=== PATIENT | female | born 1995 ===

== ENCOUNTER 2017-09-03 17:53 | Emergency (ER) | payer MEDICAID, OTHER ==
[2017-09-03 18:06] VITALS: BP 123/74; RESP 16; TEMP 97.9; O2SAT 100
--- NOTE | 2017-09-03 19:20 | ED PDOC ---
HPI: Headache Time Seen by Provider: 09/03/17 19:01 Chief Complaint (Nursing): Headache Chief Complaint (Provider): Headache History Per: Patient History/Exam Limitations: no limitations Onset/Duration Of Symptoms: Hrs (today) Current Symptoms Are (Timing): Better Quality: Other (throbbing) Preceeding Symptoms: Visual Disturbances Associated Symptoms: Extremity Weakness (left arm asleep with pinching sensation.) Additional Complaint(s): Todd Hwang is a 22 year old female, with no significant past medical history, who presents to the emergency department complaining of headache and dizziness onset today. Patient states symptoms started while at work, she noticed her "vision was moving" and felt desequilibrium while walking. Patient describes the headache as throbbing, non maximal at onset and non thunderclap. Patient also reports her left arm was asleep with a pinching sensation. She states symptoms have improved. Patient is currently taking doxycycline for acne. She denies any other medical complaints. PMD: None provided. Past Medical History Reviewed: Historical Data, Nursing Documentation, Vital Signs Vital Signs: Last Vital Signs Temp 97.9 F 09/03/17 18:02 Pulse 108 H 09/03/17 18:02 Resp 16 09/03/17 18:02 BP 123/74 09/03/17 18:02 Pulse Ox 100 09/03/17 18:02 - Medical History PMH: No Chronic Diseases - Surgical History Surgical History: No Surg Hx - Family History Family History: States: Unknown Family Hx - Allergies Allergies/Adverse Reactions: Allergies Allergy/AdvReac Type Severity Reaction Status Date / Time No Known Allergies Allergy Verified 09/03/17 18:02 Review of Systems ROS Statement: Except As Marked, All Systems Reviewed And Found Negative Neurological: Positive for: Numbness (left arm with pinching sensation), Headache (throbbing), Dizziness Physical Exam - Reviewed Nursing Documentation Reviewed: Yes Vital Signs Reviewed: Yes - Physical Exam Appears: Positive for: Well, Non-toxic, No Acute Distress Head Exam: Positive for: ATRAUMATIC, NORMAL INSPECTION, NORMOCEPHALIC Skin: Positive for: Normal Color, Warm, Dry Eye Exam: Positive for: Normal appearance, EOMI, PERRL Neck: Positive for: Painless ROM, Supple Cardiovascular/Chest: Positive for: Regular Rate, Rhythm. Negative for: Murmur Respiratory: Positive for: Normal Breath Sounds (clear auscultation b/l). Negative for: Respiratory Distress Gastrointestinal/Abdominal: Positive for: Normal Exam, Soft. Negative for: Tenderness Back: Positive for: Normal Inspection. Negative for: L CVA Tenderness, R CVA Tenderness Extremity: Positive for: Normal ROM. Negative for: Deformity, Swelling Neurologic/Psych: Positive for: Alert, Oriented (x3), Gait (steady). Negative for: Motor/Sensory Deficits (no focal deficits.), Aphasia, Facial Droop - ECG O2 Sat by Pulse Oximetry: 100 (RA) Pulse Ox Interpretation: Normal Medical Decision Making Medical Decision Making: Initial Impression: Migraine headache vs tension headache vs medication side effect Initial Plan: --Head w/o contrast [CT] --Urine --Motrin tab 600 mg PO --Reglan 10 mg PO --Reevaluation -Patient is well appearing at this time, smiling and interacting. No acute distress. Will do PO medication and head CT scan to rule out mass. 9PM Patient is feeling better, ambulating with steady gait, continues with no neuro deficit. Explained results of CT and that current presentation may have been due to migraine or possibly side effect of doxycycline. Advised patient to stop medication and followup with grounds keeper for possible change in regimen and to followup in [facility] for further care. Return precautions discussed. Scribe Attestation: Documented by Rubens Gordon, acting as a scribe for Wicho Hall MD Provider Scribe Attestation: All medical record entries made by the Scribe were at my direction and personally dictated by me. I have reviewed the chart and agree that the record accurately reflects my personal performance of the history, physical exam, medical decision making, and the department course for this patient. I have also personally directed, reviewed, and agree with the discharge instructions and disposition. Disposition - Clinical Impression Clinical Impression: Headache - Patient ED Disposition Is Patient to be Admitted: No - Disposition Referrals: [facility] [place] [Outside] Disposition: Routine/Home Disposition Time: 21:20 Condition: IMPROVED Instructions: Headache, Adult, Side Effects From Medicines Forms: [facility] (Barbadian) Print Language: TAMAZIGHT
--- NOTE | 2017-09-03 21:07 | CT ---
EXAM: CT Head Without Intravenous Contrast EXAM DATE/TIME: 09/03/2017 7:11 PM CLINICAL HISTORY: 22 years old, female; Pain; Headache; Headache not specified; Patient HX: Patient state having visual problems, headache and numbness to left leg; Additional info: Headache, dizziness TECHNIQUE: Axial computed tomography images of the head/brain without intravenous contrast. All CT scans at this facility use one or more dose reduction techniques, viz.: automated exposure control; ma/kV adjustment per patient size (including targeted exams where dose is matched to indication; i.e. head); or iterative reconstruction technique. Coronal and sagittal reformatted images were created and reviewed. COMPARISON: No relevant prior studies available. FINDINGS: LIMITATIONS: Mild streak/motion artifact. BRAIN: No significant acute abnormality identified. No acute hemorrhage seen within the brain. No acute extra-axial fluid collections visualized. No evidence of significant mass effect within the brain. Normal packer-white matter differentiation. VENTRICLES: No evidence of significant hydrocephalus. BONES/JOINTS: No acute fractures or other acute bony abnormality noted. SOFT TISSUES: No acute abnormality of the visualized soft tissues is seen. SINUSES: Visualized paranasal sinuses appear clear, except for a small mucus retention cyst in the left sphenoid sinus MASTOID AIR CELLS: Mastoid air cells appear clear. IMPRESSION: - No acute findings seen within the brain. - See above for remaining findings.
[2017-09-03 21:37] VITALS: PULSE 62
== END 2017-09-03 21:41 | disposition home or self-care (01) ==
LOC: H.ER 17:53
DX: R51 Headache (principal)